=== PATIENT | female | born 1990 | race Caucasian/White ===

== ENCOUNTER 2021-12-26 14:11 | Emergency (ER) | payer SELFPAY ==
[~2021-12-26] VITALS: Ht 154.9 cm; Wt 69.9 kg
[2021-12-26 14:16] VITALS: BP 149/90
[2021-12-26] MEDS ORDERED: NACL 0.9% 1,000 ML IV ONE (14:30)
--- NOTE | 2021-12-26 14:31 | NUR ---
PT AMBULATED TO BED 3 WITH STEADY GAIT
[2021-12-26] MEDS ORDERED: METOCLOPRAMIDE 10 MG/2 ML INJ VIAL IVP ONE (14:35)
--- NOTE | 2021-12-26 14:47 | NUR ---
ER MD AT BEDSIDE EXAMINING PT
[2021-12-26] MEDS ORDERED: ACETAMINOPHEN EXTRA STRENGTH 500 MG TAB PO ONE (14:50)
--- NOTE | 2021-12-26 14:58 | NUR ---
31 Y/O FEMALE C/O OF FEVER, NAUSEA/VOMITING/DIARRHEA X 4DAYS. STATES THAT FAMILY MEMBER ARE SICK WITH THE SAME SYMPTOMS. HR IN TRIAGE 137, TEMP 99.9 ORAL. PT STATES HER BONES HURT," AND THAT THE WHOLE FAMILY BECAME SICK AFTER "EATING A CRAB SALAD." A/OX4, GCS-15; UNLABORED BREATHING, SPEAKING IN FULL SENTENCES; AMBULATORY WITHOUT ASSISTANCE. NKA PMH: DENIES
--- NOTE | 2021-12-26 14:58 | NUR ---
XRAY AT BEDSIDE
--- NOTE | 2021-12-26 15:08 | NUR ---
PT TAKEN TO RADIOLOGY
--- NOTE | 2021-12-26 15:30 | NUR ---
GRIEVANCE COORDINATOR AT BEDSIDE
[2021-12-26 15:50] LABS: BASOPHILS % (AUTO) 0.2 % (0.0-2.0); HEMATOCRIT 38.7 % (36-48); HEMOGLOBIN 13.2 g/dL (12.0-16.0); LYMPHOCYTES # (AUTO) 0.3 K/uL (2.5-16.5); LYMPHOCYTES % (AUTO) 1.8 % (20.5-51.1); MEAN CORPUSCULAR HEMOGLOBIN 30 pg (27-31); MEAN CORPUSCULAR HGB CONC 34 g/dL (33-37); MEAN CORPUSCULAR VOLUME 89.4 fL (80-94); MONOCYTES # (AUTO) 0.9 K/uL (0.8-1.0); MONOCYTES % (AUTO) 5.1 % (1.7-9.3); NEUTROPHILS # (AUTO) 15.5 K/uL (1.8-7.7); NEUTROPHILS % (AUTO) 92.9 % (42.2-75.2); PLATELET COUNT (AUTO) 186 K/uL (140-450); RED BLOOD CELL COUNT(AUTO) 4.33 MIL/uL (4.20-5.40); RED CELL DISTRIBUTION WIDTH 12.6 % (11.6-13.7); WHITE BLOOD COUNT (AUTO) 16.7 K/uL (4.8-10.8)
[2021-12-26 15:55] LABS: APPEARANCE,URINE CLEAR (CLEAR); BILIRUBIN,URINE NEGATIVE (NEGATIVE); BLOOD, URINE 1+ (NEGATIVE); COLOR,URINE YELLOW (YELLOW); LEUKOCYTE ESTERASE ,URINE NEGATIVE (NEGATIVE); NITRITE, URINE POSITIVE (NEGATIVE); PH,URINE 6.5 (5.0-9.0); UGLUCOSE NEGATIVE (NEGATIVE)
[2021-12-26 16:10] LABS: ANION GAP 12.1 (8-16); CARBON DIOXIDE 24.5 mmol/L (21-32); CREATININE 0.7 mg/dL (0.6-1.3); POTASSIUM 3.6 mmol/L (3.5-5.1); PROTHROMBIN TIME 11.1 secs (10.8-13.4); TOTAL BILIRUBIN 1.3 mg/dL (0.0-1.0)
--- NOTE | 2021-12-26 17:01 | NUR ---
covid/johanna, flu, and strep swabs collected and walked to lab
[2021-12-26] MEDS ORDERED: ONDA-188 SL (17:33)
[2021-12-26] MEDS ORDERED: BEN10 PO (17:33)
[2021-12-26] MEDS ORDERED: LOPE2CAP99 PO (17:33)
[2021-12-26 17:47] VITALS: BP 108/83
--- NOTE | 2021-12-26 17:48 | NUR ---
Patient discharged with v/s stable. Written and verbal after care instructions given and explained. Patient alert, oriented and verbalized understanding of instructions. Ambulatory with steady gait. All questions addressed prior to discharge. ID band removed. Patient advised to follow up with PMD. Rx of BENTYL, ZOFRAN, AND LOPERAMIDE HCL given. Patient educated on indication of medication including possible reaction and side effects. Opportunity to ask questions provided and answered. VSS, A/OX4, UNLABORED BREATHING, AMBULATORY, AND CALM DEMEANOR.
== END 2021-12-26 17:48 | disposition home or self-care (01) ==
LOC: MED 14:11
DX: A08.4 Viral intestinal infection, unspecified (principal); Z20.822 Contact with and (suspected) exposure to COVID-19; I10 Essential (primary) hypertension; R00.0 Tachycardia, unspecified; D72.829 Elevated white blood cell count, unspecified; F12.90 Cannabis use, unspecified, uncomplicated; Z79.899 Other long term (current) drug therapy; Z98.890 Other specified postprocedural states
CPT/HCPCS: 36415; 71045; 74176; 80053; 81003; 82550; 82553; 83605; 85025; 85610; 85730; 87040; 87086; 87426; 87804; 93005; 96361; 96374; 99285; J2765; J7030; 81002